=== PATIENT | male | born 1990 | race Caucasian/White ===

== ENCOUNTER 2022-07-25 11:43 | Outpatient (REF) | payer MEDICAID, SELFPAY ==
--- NOTE | ~2022-07-25 | XR_ITS ---
EXAMINATION: XR LUMBOSACRAL SPINE WITH OBLIQUES CLINICAL INFORMATION: Spondylosis. COMPARISON: None TECHNIQUE: AP, both oblique, and lateral views of the lumbar spine. Lateral view of the lumbosacral junction. FINDINGS: No fracture or subluxation. Vertebral body height and alignment maintained. Disc spaces are maintained with small endplate osteophytes noted at L5-S1. The sacroiliac joints are symmetric. The visualized sacrum is intact. Normal bowel gas pattern. XR/XR lumbar spine 4V min IMPRESSION: Mild degenerative change at L5-S1.
== END 2022-07-25 11:44 | disposition home or self-care (01) ==
LOC: HO.XRAY 11:43
PROVIDERS: Visit Provider Physical Medicine & Rehabilitation
DX: M47.896 Other spondylosis, lumbar region (principal)
CPT/HCPCS: 72110